=== PATIENT | female | born 1960 | race Hispanic/Latino ===

== ENCOUNTER 2018-11-15 17:34 | Inpatient (IN) | payer OTHER ==
[2018-11-15] MEDS ORDERED: Sodium Chloride 0.9% 1,000 ML IV STA (18:03)
--- NOTE | 2018-11-15 18:11 | ED PDOC ---
Lower Extremity Pain/Injury Time Seen by Provider: 11/15/18 17:49 Chief Complaint (Nursing): Lower Extremity Problem/Injury Chief Complaint (Provider): lower extremity pain History Per: Patient History/Exam Limitations: no limitations Onset/Duration Of Symptoms: Days (today) Additional Complaint(s): Pt. with left pain pain since Friday. Also chills, felt feverish, and redness to leg. Pt. has a liposuction to both legs October 23. Since then, has had multiple drains put in for removal of swelling of the left leg liposuction area and last one felt out. No numbness, tingles. No chest pain, dyspnea. Surgeon in [place] and advised to go to the ER. Past Medical History Reviewed: Nursing Documentation, Vital Signs Vital Signs: Last Vital Signs Temp 98.8 F 11/15/18 17:40 Pulse 93 H 11/15/18 17:40 Resp 19 11/15/18 17:40 BP 105/64 11/15/18 17:40 Pulse Ox 100 11/15/18 17:40 - Medical History PMH: Hypothyroidism - Surgical History Other surgeries: liposuction b/l legs - Family History Family History: States: Unknown Family Hx - Living Arrangements Living Arrangements: With Family - Social History Current smoker - smoking cessation education provided: No Alcohol: None Drugs: Denies - Immunization History Hx Tetanus Toxoid Vaccination: No Hx Influenza Vaccination: No Hx Pneumococcal Vaccination: No - Allergies Allergies/Adverse Reactions: Allergies Allergy/AdvReac Type Severity Reaction Status Date / Time No Known Allergies Allergy Verified 11/15/18 18:03 Review of Systems ROS Statement: Except As Marked, All Systems Reviewed And Found Negative Constitutional: Positive for: Fever, Chills Musculoskeletal: Positive for: Leg Pain Skin: Positive for: Rash Physical Exam - Reviewed Nursing Documentation Reviewed: Yes Vital Signs Reviewed: Yes - Physical Exam Appears: Positive for: Non-toxic, No Acute Distress Head Exam: Positive for: ATRAUMATIC, NORMAL INSPECTION, NORMOCEPHALIC Skin: Positive for: Rash (left upper leg 12 inch approx diameter) Eye Exam: Positive for: EOMI, Normal appearance, PERRL ENT: Positive for: Normal ENT Inspection Neck: Positive for: Normal, Painless ROM Cardiovascular/Chest: Positive for: Regular Rate, Rhythm Respiratory: Positive for: CNT, Normal Breath Sounds Gastrointestinal/Abdominal: Positive for: Normal Exam, Soft Back: Positive for: Normal Inspection. Negative for: L CVA Tenderness, R CVA Tenderness Extremity: Positive for: Normal ROM, Tenderness (left upper lateral leg tender with erythema and fluctuance; no induration). Negative for: Calf Tenderness Neurological/Psych: Positive for: Awake, Alert, Normal Tone - Laboratory Results Result Diagrams: 11/15/18 18:49 11/15/18 18:49 Lab Results: no acute - ECG O2 Sat by Pulse Oximetry: 100 Pulse Ox Interpretation: Normal - Progress ED Course And Treament: This process extends inferiorly to the level of the left mid femoral shaft. The maximum size of this process is approximately 29.7 x 5.2 x 2.5 cm in craniocaudal, AP and transverse dimensions respectively. IMPRESSION: 1. Large soft tissue cellulitis with subcutaneous abscess formation beginning in the lateral left adnexa and extending inferiorly along the lateral left thigh to the level of the mid left femoral shaft as described above. 2124: Spoke with Dr. Foster. He evaluated ct and images of pt. cellulitis (pt. gave consent to take pics). He also spoke with pt. and will admit to his service. Antibiotics and npo after midnight. Surgery resident aware. Disposition - Clinical Impression Clinical Impression: Cellulitis and abscess of leg - Patient ED Disposition Is Patient to be Admitted: Yes Counseled Patient/Family Regarding: Studies Performed, Diagnosis - Disposition Disposition Time: 21:27 Condition: FAIR - Pt Status Changed To: Hospital Disposition Of: Inpatient - Admit Certification Admit to Inpatient:: After my assessment, the patient will require hospitalization for at least two midnights. This is because of the severity of symptoms shown, intensity of services needed, and/or the medical risk in this patient being treated as an outpatient. - POA Present On Arrival: None
[2018-11-15] MEDS ORDERED: Sodium Chloride 0.9% 1,000 ML IV SCH (18:15)
[2018-11-15 18:54] LABS: VENOUS BLOOD GAS BASE EXCESS 5.3 mmol/L (0.0-2.0); VENOUS BLOOD GAS PCO2 46 mmHg (40-60); VENOUS BLOOD GAS PO2 20 mm/Hg (30-55); VENOUS BLOOD PH 7.43 (7.32-7.43)
[2018-11-15 18:56] LABS: BASO % 0.5 % (0.0-2.0); EOS # 0.1 K/uL (0.0-0.7); EOS % 1.3 % (0.0-4.0); HEMOGLOBIN 10.3 g/dL (12.0-16.0); LYMPH # 1.9 K/uL (1.0-4.3); LYMPH % 34.7 % (20.0-40.0); MEAN CELL VOLUME 87.6 fl (81.0-99.0); MEAN CORPUSCULAR HEMOGLOBIN 28.6 pg (27.0-31.0); MEAN CORPUSCULAR HGB CONC 32.7 g/dL (33.0-37.0); MEAN PLATELET VOLUME 8.3 fl (7.2-11.7); MONO # 0.5 K/uL (0.0-0.8); MONO % 8.5 % (0.0-10.0); RBC 3.61 Mil/uL (3.80-5.20); RED CELL DISTRIBUTION WIDTH 15.1 % (11.5-14.5); WHITE BLOOD COUNT 5.4 K/uL (4.8-10.8)
[2018-11-15 19:00] LABS: PROTHROMBIN TIME 11.6 Seconds (9.8-13.1)
[2018-11-15 19:03] LABS: PARTIAL THROMBOPLASTIN TIME 33.7 Seconds (25.6-37.1)
[2018-11-15 19:06] LABS: ALB/GLOB RATIO 1.2 (1.0-2.1); ALBUMIN 3.9 g/dL (3.5-5.0); ALT/SGPT 40 U/L (9-52); AST/SGOT 37 U/L (14-36); BLOOD UREA NITROGEN 14 mg/dl (7-17); CALCIUM 9.2 mg/dL (8.4-10.2); GFR NON-AFRICAN AMERICAN > 60
[2018-11-15] MEDS ORDERED: Iohexol 300 100 ML IJ ONE (19:18)
[2018-11-15] MEDS ORDERED: Sodium Chloride 0.9% 50 ML IV ONE (19:18)
--- NOTE | 2018-11-15 20:47 | CARD ---
APPROVED REPORT Date of service: 11/15/2018 EKG Measurement Heart [id number] <Conclusion> Normal sinus rhythm Normal ECG
[2018-11-15] MEDS ORDERED: Piperacillin/Tazobact 3.375 GM in Sodium Chloride 0.9% 100 ML IV STA (20:50)
[2018-11-15] MEDS ORDERED: Piperacillin/Tazobact 3.375 gm Inj IVPB ONE (21:32)
[2018-11-15] MEDS ORDERED: Morphine 4 MG/ML VIAL IVP PRN (22:34)
[2018-11-15] MEDS ORDERED: Vancomycin 1 g Inj ONE (23:22)
--- NOTE | 2018-11-15 23:45 | CP.PCM.HP ---
History of Present Illness - History of Present Illness History of Present Illness: H&P Plastic Surgery- Dr. Foster 57F pmhx significant for Breast Ca, s/p multiple surgeries presents to [facility] ED s/p b/l Lower extremity liposuction 3 weeks ago. Patient states she has been febrile 103.0 on Santosh. Patient subsequently felt increasing warmth and swelling of the LLE. Patient was taking Cipro and completed course recently. Upon workup in the ED patient was found to have large collection in left lower extremity. Palpable area of fluctuance. + Fevers, chills Denies: Nausea, vomiting, changes in urinary and bowel habits PMH: Breast Ca, BRCA + PSH: b/l Mastectomy w/ reconstruction, Hysterectomy, multiple plastic surgeries ALL: NKDA SocialHx: denies tobacco, etoh, recreational drug use Present on Admission - Present on Admission Any Indicators Present on Admission: No Review of Systems - Review of Systems All systems: reviewed and no additional remarkable complaints except - Constitutional Constitutional: As Per HPI Past Patient History - Infectious Disease Hx of Infectious Diseases: None - Past Social History Alcohol: None Drugs: Denies - ENDOCRINE/METABOLIC Hx Hypothyroidism: Yes - PSYCHIATRIC Hx Substance Use: No - SURGICAL HISTORY Other/Comment: Lipo suction 10/23/18 - ANESTHESIA Hx Anesthesia: Yes Hx Anesthesia Reactions: No Meds Allergies/Adverse Reactions: Allergies Allergy/AdvReac Type Severity Reaction Status Date / Time No Known Allergies Allergy Verified 11/15/18 18:03 Physical Exam - Constitutional Appears: Non-toxic, No Acute Distress - Head Exam Head Exam: ATRAUMATIC - Eye Exam Eye Exam: EOMI. absent: Scleral icterus - ENT Exam ENT Exam: Mucous Membranes Moist - Respiratory Exam Respiratory Exam: Clear to Auscultation Bilateral. absent: Accessory Muscle Use, Chest Wall Tenderness - Cardiovascular Exam Cardiovascular Exam: absent: Bradycardia, Tachycardia - GI/Abdominal Exam GI & Abdominal Exam: Soft. absent: Distended, Firm, Guarding, Hernia, Rigid - Extremities Exam Additional comments: extensive area of fluctuance of left lower extremity and erythema - Neurological Exam Neurological exam: Alert, Oriented x3 - Psychiatric Exam Psychiatric exam: Normal Affect - Skin Skin Exam: Intact, Warm Results - Vital Signs Recent Vital Signs: Last Vital Signs Temp 98.8 F 11/15/18 17:40 Pulse 85 11/15/18 20:19 Resp 18 11/15/18 20:19 BP 107/69 11/15/18 20:19 Pulse Ox 100 11/15/18 21:28 - Labs Result Diagrams: 11/15/18 18:49 11/15/18 18:49 Labs: Laboratory Results - last 24 hr 11/15/18 11/15/18 11/15/18 18:49 18:49 18:49 WBC 5.4 RBC 3.61 L Hgb 10.3 L Hct 31.6 L MCV 87.6 MCH 28.6 MCHC 32.7 L RDW 15.1 H Plt Count 330 MPV 8.3 Neut % (Auto) 55.0 Lymph % (Auto) 34.7 [place] % (Auto) 8.5 Eos % (Auto) 1.3 Baso % (Auto) 0.5 Neut # (Auto) 3.0 Lymph # (Auto) 1.9 [place] # (Auto) 0.5 Eos # (Auto) 0.1 Baso # (Auto) 0.0 PT 11.6 INR 1.0 APTT 33.7 pO2 VBG pH VBG pCO2 VBG HCO3 VBG Total CO2 VBG O2 Sat (Calc) VBG Base Excess VBG Potassium Sodium 137 Chloride 101 Glucose Lactate FiO2 Potassium 4.3 Carbon Dioxide 27 Anion Gap 13 BUN 14 Creatinine 0.6 L Est GFR ( Amer) > 60 Est GFR (Non-Af Amer) > 60 Random Glucose 92 Calcium 9.2 Phosphorus 3.8 Magnesium 2.0 Total Bilirubin 0.5 AST 37 H ALT 40 Alkaline Phosphatase 59 Troponin I < 0.0120 Total Protein 7.1 Albumin 3.9 Globulin 3.3 Albumin/Globulin Ratio 1.2 Venous Blood Potassium 11/15/18 18:49 WBC RBC Hgb Hct MCV MCH MCHC RDW Plt Count MPV Neut % (Auto) Lymph % (Auto) [place] % (Auto) Eos % (Auto) Baso % (Auto) Neut # (Auto) Lymph # (Auto) [place] # (Auto) Eos # (Auto) Baso # (Auto) PT INR APTT pO2 20 L VBG pH 7.43 VBG pCO2 46 VBG HCO3 27.3 VBG Total CO2 31.9 H VBG O2 Sat (Calc) 30.5 L VBG Base Excess 5.3 H VBG Potassium 4.5 Sodium 138.0 Chloride 105.0 Glucose 95 Lactate 0.9 FiO2 21.0 Potassium Carbon Dioxide Anion Gap BUN Creatinine Est GFR ( Amer) Est GFR (Non-Af Amer) Random Glucose Calcium Phosphorus Magnesium Total Bilirubin AST ALT Alkaline Phosphatase Troponin I Total Protein Albumin Globulin Albumin/Globulin Ratio Venous Blood Potassium 4.5 Assessment & Plan - Assessment and Plan (Free Text) Assessment: 57F w/ extensive left lower extremity abscess Plan: - Plan for OR in AM - NPO - IVF/Abx - pain control & Anti-emetic - discussed w/ Dr. Foster Surgical Attending PGY2
[2018-11-16] MEDS: Lactated Ringer's 1,000 ML IV SCH ×3 (01:52→18:16)
[2018-11-16] MEDS: Piperacillin/Tazobact 3.375 GM in Sodium Chloride 0.9% 100 ML IVPB SCH ×4 (03:11→21:47)
[2018-11-16 05:38] LABS: HEMOGLOBIN 9.2 g/dL (12.0-16.0); MEAN CELL VOLUME 88.8 fl (81.0-99.0); MEAN CORPUSCULAR HEMOGLOBIN 28.9 pg (27.0-31.0); MEAN CORPUSCULAR HGB CONC 32.6 g/dL (33.0-37.0); RBC 3.17 Mil/uL (3.80-5.20); RED CELL DISTRIBUTION WIDTH 15.1 % (11.5-14.5)
[2018-11-16 06:25] LABS: BLOOD UREA NITROGEN 17 mg/dl (7-17); CALCIUM 8.5 mg/dL (8.4-10.2); GFR NON-AFRICAN AMERICAN > 60
[2018-11-16] MEDS: THYROID PORK 15 MG PO SCH (06:25)
[2018-11-16] MEDS: THYROID PORK 120 MG PO SCH (06:25)
--- NOTE | 2018-11-16 09:30 | RAD ---
Date of service: 11/15/2018 PROCEDURE: CHEST RADIOGRAPH, 1 VIEW HISTORY: pre-op COMPARISON: None available. FINDINGS: LUNGS: The lungs are well inflated and clear. PLEURA: No pneumothorax or pleural effusion. CARDIOVASCULAR: The heart is normal in size. No aortic atherosclerotic calcifications present. OSSEOUS STRUCTURES: Within normal limits for the patient's age. VISUALIZED UPPER ABDOMEN: Normal. OTHER FINDINGS: There are multiple surgical clips in bilateral axilla. IMPRESSION: No active pulmonary disease.
--- NOTE | 2018-11-16 10:18 | CT ---
Date of service: 11/15/2018 PROCEDURE: CT of the left thigh with intravenous contrast. HISTORY: pain and r/o out abscess upper leg lateral COMPARISON: None available. TECHNIQUE: Contiguous axial images of the right hip were obtained. Coronal and sagittal reformats were generated. Contrast dose: 95 mL Omnipaque 300 Radiation dose: Total exam DLP = 469.66 mGy-cm. This CT exam was performed using one or more of the following dose reduction techniques: Automated exposure control, adjustment of the mA and/or kV according to patient size, and/or use of iterative reconstruction technique. FINDINGS: BONES: There is diffuse bone demineralization no fracture, bone erosion or destruction. Femoral head maintains normal contour. RIGHT HIP JOINT: The right hip joint space is preserved. No dislocation. No degenerative changes. SOFT TISSUES: There is an approximately 20.0 x 6.4 x 2.8 cm fluid collection with mild peripheral rim enhancement and few foci of gas in the deep subcutaneous tissues of the left lateral gluteal region and lateral thigh. There is overlying skin thickening and extensive subcutaneous fat stranding. IMPRESSION: Findings are consistent with a large abscess in the subcutaneous tissue of the lateral gluteal region and thigh with associated cellulitis. A preliminary report was provided by [employer].
[2018-11-16] MEDS ORDERED: Propofol 10 mg/ml Inj (20 ML) ONE (17:20)
[2018-11-16] MEDS ORDERED: Midazolam 2 MG/2 ML VIAL ONE (17:20)
[2018-11-16] MEDS ORDERED: Bupivacaine 0.5% Inj(30mL) ONE (17:34)
[2018-11-16] MEDS ORDERED: Lidocaine 1% Inj (20ml) ONE (17:34)
[2018-11-16] MEDS ORDERED: Lactated Ringer's 1,000 ML IV ONE (18:05)
[2018-11-16] MEDS ORDERED: HYDROmorphone 0.5 mg/0.5 ml ISec IVP PRN (18:36)
--- NOTE | 2018-11-16 18:40 | PCM.SURG1 ---
Surgeon's Initial Post Op Note - Surgeon's Notes Surgeon: Dr. Foster Cmm Technician: Pedro Pablo PGY2 Type of Anesthesia: General LMA Anesthesia Administered By: Dr. Hunter Pre-Operative Diagnosis: LLE infected seroma Operative Findings: LLE infected seroma Post-Operative Diagnosis: LLE infected seroma Operation Performed: I&D and packing of LLE infected seroma Specimen/Specimens Removed: 4 cultures: afb, fungus, wound cx, gram stain Estimated Blood Loss: EBL {In ML}: 5 Blood Products Given: N/A Drains Used: No Drains Post-Op Condition: Good Date of Surgery/Procedure: 11/16/18 Time of Surgery/Procedure: 18:40
--- NOTE | 2018-11-16 18:49 | PCM.OP ---
Operative Report - Operative Report Date of Surgery/Procedure: 11/16/18 Time of Surgery/Procedure: 18:41 Surgeon: Dr. Fosetr [facility] Director: Pedro Pablo NEELYY2 Anesthesia/Sedation: General LMA Dr. Hunter Pre-Operative Diagnosis: LLE infected seroma Post-Operative Diagnosis: LLE infected seroma Indication for Surgery: LLE infected seroma Operative Findings: LLE infected seroma Procedure/Operation Description: Procedure: I&D with packing of LLE infected seroma 57 M who recently had liposuction of LLE presented 11/16 in [facility] for fevers and fluid collection of LLE. CT LLE revealed LLE infected seroma. Consent was obtained from the patient prior to the procedure. Risks/Benefits discussed with patient at length. Patient verbalized underdtanding and agreement to proceed with the procedure. Patient was taken to the operating room and placed in the supine position. General LMA anesthesia was administered. A bump was placed under patient LLE to prop up the leg and give better exposure of the seroma site. The patient's LLE was prepped and draped in the usual sterile fashion. Timeout was performed. #15 blade was sued to make small incision at the inferior border of the seroma. A tonsil clamp was then used to open the incision more as well as open the seroma pocket plus break up any loculations. All the infected fluid was expressed from the seroma. Once all the fluid was expressed, 1/2 in iodoform packet was placed inside to wound to allow for drainage. Gauze and abdominal pad was used for dr frias. EBL was 5 cc. All nursing counts were correct and confirmed. Patient tolerated the procedure well with no apparent complications. Patient was extubated and transferred to PACU for recovery. Patient will be transferred back to 4. Abx will be continued. Patient may have regular diet. Estimated Blood Loss: 5cc Complications: None Discharge & Condition: Good, Patient will be transferred back to 4N after PACU. Abx will be continued. Patient may have regular diet.
[2018-11-17] MEDS: Lactated Ringer's 1,000 ML IV SCH (02:30)
[2018-11-17] MEDS: Piperacillin/Tazobact 3.375 GM in Sodium Chloride 0.9% 100 ML IVPB SCH ×4 (04:00→21:13)
[2018-11-17] MEDS: THYROID PORK 15 MG PO SCH (07:55)
[2018-11-17] MEDS: THYROID PORK 120 MG PO SCH (07:55)
--- NOTE | 2018-11-17 08:21 | CP.PCM.PN ---
Subjective - Date & Time of Evaluation Date of Evaluation: 11/17/18 Time of Evaluation: 08:20 - Subjective Subjective: General Surgery Progress Note: Dr. Foster 58 year old female patient seen and examined this am. Patient resting comfortably and in NAD, states she, "feels well today". She endorses mild pain to the surgical site at this time, however pain is well tolerated with pain medication. Denies nausea/vomiting/fever/shortness of breath/chest pain. Objective - Vital Signs/Intake and Output Vital Signs (last 24 hours): Temp Pulse Resp BP Pulse Ox 98.2 F 77 20 105/43 L 97 11/17/18 08:10 11/17/18 08:10 11/17/18 08:10 11/17/18 08:10 11/17/18 08:10 - Medications Medications: Current Medications Acetaminophen (Tylenol 325mg Tab) 650 mg PO Q4 PRN PRN Reason: Fever >100.4 F Last Admin: 11/17/18 06:24 Dose: 650 mg Home Med (Thyroid,Pork [[place] Thyroid]) 120 mg PO DAILY@0630 [facility]LAH Last Admin: 11/17/18 07:55 Dose: 120 mg Lactated Ringer's (Lactated Ringer's) 1,000 mls @ 110 mls/hr IV .[id number] [facility] Last Admin: 11/17/18 02:30 Dose: 110 mls/hr Vancomycin HCl 1 gm/ Sodium (Chloride) 250 mls @ 166.667 mls/hr IVPB Q12H [facility]LA[facility]; Protocol Last Admin: 11/17/18 05:13 Dose: 166.667 mls/hr Piperacillin Sod/Tazobactam (Sod 3.375 gm/ Sodium Chloride) 100 mls @ 100 mls/hr IVPB Q6 [facility]LA[facility]; Protocol Last Admin: 11/17/18 04:00 Dose: 100 mls/hr Morphine Sulfate (Morphine) 2 mg IVP Q4 PRN PRN Reason: Pain, moderate (4-7) Last Admin: 11/17/18 05:14 Dose: 2 mg Morphine Sulfate (Morphine) 4 mg IVP Q4 PRN PRN Reason: Pain, severe (8-10) Patient's Own Med ( Thyroid,Pork [[place] Thyroid] 15 Mg) 1 unit PO DAILY@0630 S Last Admin: 11/17/18 07:55 Dose: 1 unit - Labs Labs: 11/16/18 05:19 11/16/18 05:19 PT 11.6 Seconds (9.8-13.1) 11/15/18 18:49 INR 1.0 11/15/18 18:49 APTT 33.7 Seconds (25.6-37.1) 11/15/18 18:49 - Constitutional Appears: Non-toxic, No Acute Distress - Head Exam Head Exam: ATRAUMATIC, NORMOCEPHALIC - Eye Exam Eye Exam: Normal appearance - ENT Exam ENT Exam: Mucous Membranes Moist - Respiratory Exam Respiratory Exam: NORMAL BREATHING PATTERN - Cardiovascular Exam Cardiovascular Exam: REGULAR RHYTHM - GI/Abdominal Exam GI & Abdominal Exam: Soft, Normal Bowel Sounds - Extremities Exam Extremities Exam: Normal Capillary Refill. absent: Calf Tenderness Additional comments: Left lower extremity surgical dressing C/D/I No purulence or drainage expressed from surgical site Mild erythema appreciated - Neurological Exam Neurological Exam: Alert, Awake, Oriented x3 - Psychiatric Exam Psychiatric exam: Normal Affect, Normal Mood Assessment and Plan - Assessment and Plan (Free Text) Assessment: 58 year old female patient POD#1 I&D and packing of LLE infected seroma Plan: - Local wound care; packing removed from surgical site, area cleaned, and repacked today. - Follow up OR cultures - C/w IV abx - C/w pain management - Further recommendations per Dr. Cristian Fonseca PGY1
[2018-11-17 16:00] VITALS: RESP 18
[2018-11-18] MEDS: Piperacillin/Tazobact 3.375 GM in Sodium Chloride 0.9% 100 ML IVPB SCH ×2 (03:09→09:16)
[2018-11-18] MEDS: THYROID PORK 120 MG PO SCH (05:49)
[2018-11-18] MEDS: THYROID PORK 15 MG PO SCH (05:55)
[2018-11-18 05:59] VITALS: BMI 22.5
[2018-11-18 06:22] LABS: BASO % 0.2 % (0.0-2.0); EOS # 0.2 K/uL (0.0-0.7); EOS % 3.4 % (0.0-4.0); HEMOGLOBIN 9.4 g/dL (12.0-16.0); LYMPH # 2.9 K/uL (1.0-4.3); LYMPH % 55.5 % (20.0-40.0); MEAN PLATELET VOLUME 8.5 fl (7.2-11.7); MONO # 0.5 K/uL (0.0-0.8); MONO % 9.1 % (0.0-10.0); NEUT # 1.6 K/uL (1.8-7.0); NEUT % 31.8 % (50.0-75.0); NRBC % 0.1 % (0.0-0.0); RBC 3.24 Mil/uL (3.80-5.20); RED CELL DISTRIBUTION WIDTH 15.1 % (11.5-14.5); WHITE BLOOD COUNT 5.2 K/uL (4.8-10.8)
[2018-11-18] MEDS ORDERED: Enoxaparin 40 mg Syringe SC SCH (09:00)
--- NOTE | 2018-11-18 10:56 | CP.PCM.DIS ---
Provider - Provider Date of Admission: 11/15/18 21:25 Attending physician: Anya Foster MD Time Spent in preparation of Discharge (in minutes): 45 Hospital Course - Lab Results Lab Results: Micro Results 11/16/18 18:45 Hip - Left Gram Stain - Final 11/16/18 18:45 Hip - Left Wound Culture - Preliminary NO GROWTH AFTER 24 HOURS 11/15/18 19:00 Blood Blood Culture - Preliminary NO GROWTH AFTER 48 HOURS 11/15/18 18:40 Blood Blood Culture - Preliminary NO GROWTH AFTER 48 HOURS Most Recent Lab Values WBC 5.2 K/uL (4.8-10.8) 11/18/18 05:50 RBC 3.24 Mil/uL (3.80-5.20) L 11/18/18 05:50 Hgb 9.4 g/dL (12.0-16.0) L 11/18/18 05:50 Hct 28.5 % (34.0-47.0) L 11/18/18 05:50 MCV 88.0 fl (81.0-99.0) 11/18/18 05:50 MCH 29.0 pg (27.0-31.0) 11/18/18 05:50 MCHC 33.0 g/dL (33.0-37.0) 11/18/18 05:50 RDW 15.1 % (11.5-14.5) H 11/18/18 05:50 Plt Count 313 K/uL (130-400) 11/18/18 05:50 MPV 8.5 fl (7.2-11.7) 11/18/18 05:50 Neut % (Auto) 31.8 % (50.0-75.0) L 11/18/18 05:50 Lymph % (Auto) 55.5 % (20.0-40.0) H 11/18/18 05:50 [place] % (Auto) 9.1 % (0.0-10.0) 11/18/18 05:50 Eos % (Auto) 3.4 % (0.0-4.0) 11/18/18 05:50 Baso % (Auto) 0.2 % (0.0-2.0) 11/18/18 05:50 Neut # (Auto) 1.6 K/uL (1.8-7.0) L 11/18/18 05:50 Lymph # (Auto) 2.9 K/uL (1.0-4.3) 11/18/18 05:50 [place] # (Auto) 0.5 K/uL (0.0-0.8) 11/18/18 05:50 Eos # (Auto) 0.2 K/uL (0.0-0.7) 11/18/18 05:50 Baso # (Auto) 0.0 K/uL (0.0-0.2) 11/18/18 05:50 PT 11.6 Seconds (9.8-13.1) 11/15/18 18:49 INR 1.0 11/15/18 18:49 APTT 33.7 Seconds (25.6-37.1) 11/15/18 18:49 pO2 20 mm/Hg (30-55) L 11/15/18 18:49 VBG pH 7.43 (7.32-7.43) 11/15/18 18:49 VBG pCO2 46 mmHg (40-60) 11/15/18 18:49 VBG HCO3 27.3 mmol/L 11/15/18 18:49 VBG Total CO2 31.9 mmol/L (22-28) H 11/15/18 18:49 VBG O2 Sat (Calc) 30.5 % (40-65) L 11/15/18 18:49 VBG Base Excess 5.3 mmol/L (0.0-2.0) H 11/15/18 18:49 VBG Potassium 4.5 mmol/L (3.6-5.2) 11/15/18 18:49 Sodium 138.0 mmol/L (132-148) 11/15/18 18:49 Chloride 105.0 mmol/L (98-107) 11/15/18 18:49 Glucose 95 mg/dL (65-105) 11/15/18 18:49 Lactate 0.9 mmol/L (0.7-2.1) 11/15/18 18:49 FiO2 21.0 % 11/15/18 18:49 Sodium 138 mmol/l (132-148) 11/16/18 05:19 Potassium 3.9 MMOL/L (3.6-5.0) 04/08/19 05:19 Chloride 108 mmol/L (98-107) H 11/16/18 05:19 Carbon Dioxide 26 mmol/L (22-30) 11/16/18 05:19 Anion Gap 8 (10-20) L 11/16/18 05:19 BUN 17 mg/dl (7-17) 11/16/18 05:19 Creatinine 0.5 mg/dl (0.7-1.2) L 11/16/18 05:19 Est GFR ( Amer) > 60 11/16/18 05:19 Est GFR (Non-Af Amer) > 60 11/16/18 05:19 Random Glucose 83 mg/dL (65-105) 11/16/18 05:19 Calcium 8.5 mg/dL (8.4-10.2) 11/16/18 05:19 Phosphorus 3.8 mg/dl (2.5-4.5) 11/15/18 18:49 Magnesium 2.0 MG/DL (1.6-2.3) 11/15/18 18:49 Total Bilirubin 0.5 mg/dl (0.2-1.3) 11/15/18 18:49 AST 37 U/L (14-36) H 11/15/18 18:49 ALT 40 U/L (9-52) 11/15/18 18:49 Alkaline Phosphatase 59 U/L (38-126) 11/15/18 18:49 Troponin I < 0.0120 ng/mL (0.00-0.120) 11/15/18 18:49 Total Protein 7.1 G/DL (6.3-8.2) 11/15/18 18:49 Albumin 3.9 g/dL (3.5-5.0) 11/15/18 18:49 Globulin 3.3 gm/dL (2.2-3.9) 11/15/18 18:49 Albumin/Globulin Ratio 1.2 (1.0-2.1) 11/15/18 18:49 Venous Blood Potassium 4.5 mmol/L (3.6-5.2) 11/15/18 18:49 - Hospital Course Hospital Course: Patient is a 58 yr old female with recent history of bolateral lower extremity liposuction. Patient had been having several days of increzasing pain and swelling of the left thigh and fevers with Tmax 103. patient presented and was found to have abscess/ Seroma on the left lateral thigh. patient was taken to the RO for I&D and wound was packed with 1/4 packing. patient recovered well after procedure with minimal pain. Wound cultures negative to date. Significant improvement of surrounding erythema and cellulitis noted today. Patient to be discharged with Clindamycin 300 mg TID and will be following up in Dr. Foster's office this coming monday 11/20. At the time of discharge the patient was in a stable condition and had no further complaints. Discharge instructions were reviewed with patient prior to discharge. - Date & Time of H&P Date of H&P: 11/18/18 Time of H&P: 10:54 Discharge Exam - Head Exam Head Exam: ATRAUMATIC, NORMOCEPHALIC - Eye Exam Eye Exam: EOMI - ENT Exam ENT Exam: Mucous Membranes Moist - Respiratory Exam Respiratory Exam: NORMAL BREATHING PATTERN - Cardiovascular Exam Cardiovascular Exam: REGULAR RHYTHM - GI/Abdominal Exam GI & Abdominal Exam: Soft. absent: Tenderness - Extremities Exam Additional comments: left thigh with minimal erythema surrounding wound site, edema significantly decreased, no fluctuance noted, packing changed, clean dressing placed - Neurological Exam Neurological exam: Alert, Oriented x3 - Psychiatric Exam Psychiatric exam: Normal Affect, Normal Mood - Skin Skin Exam: Dry, Intact, Normal Color, Warm Discharge Plan - Discharge Medications Prescriptions: Clindamycin [Cleocin] 300 mg PO TID 7 Days #21 cap - Follow Up Plan Condition: FAIR Disposition: HOME/ ROUTINE Instructions: Abscess (GEN) Additional Instructions: Upon discharge you have been given the following medication: Clindamycin 300 mg to be taken three times daily by mouth for 7 days Please call the office of Dr. Foster to make a follow up appointment for this Monday 11/20 please keep dressing clean and dry. Do not remove packing unless otherwise instructed by Dr. Foster Please refrain from baths, pools hot tubs or any kind of soaking If dressing becomes dirty or needs to be changed, you may change with gauze/abd pads and secure with tape If you begin to have worsening symptoms or any new concerning symptoms please contact Dr. Foster's office and proceed to your nearest ER for further evaluation Referrals: Anya Foster MD [Medical Doctor] -
[2018-11-18 12:04] VITALS: BP 114/72; PULSE 78; TEMP 98.4; O2SAT 100
== END 2018-11-18 15:45 | disposition home or self-care (01) | DRG 603 ==
LOC: H.ER 17:34 → H.ERHOLD 21:25 → H.TEL 11-16 01:46
PROVIDERS: ADMIT Surgery; ATTEND Surgery
PROC: 0H9LXZZ Drainage of Left Lower Leg Skin, External Approach (ICD-10-PCS; principal; 2018-11-16 13:00)
DX: L03.116 Cellulitis of left lower limb (principal); L02.416 Cutaneous abscess of left lower limb; E03.9 Hypothyroidism, unspecified; Z85.3 Personal history of malignant neoplasm of breast; Z90.12 Acquired absence of left breast and nipple; Z90.710 Acquired absence of both cervix and uterus